=== PATIENT | male | born 1965 | race Caucasian/White ===

== ENCOUNTER 2016-12-31 23:23 | Emergency (ER) | payer OTHER ==
[2016-12-31 23:31] VITALS: O2SAT 99
[2016-12-31] MEDS ORDERED: Phenergan 25 MG INJ IM ONE (23:57)
[2016-12-31] MEDS ORDERED: Hydromorphone 1 mg/ml Ampule IM ONE (23:57)
--- NOTE | 2017-01-01 00:13 | ERPHSYRPT ---
- History of Present Illness Time Seen by Provider: 12/31/16 23:38 Source: patient Exam Limitations: no limitations Patient Subjective Stated Complaint: reports that he slipped on some wet grass, walking downhill at about 1600 tonight - states that he has pain in his right hip and knee and lower back - denies hitting head/LOC Triage Nursing Assessment: ambulatory to treatment area - waddling gait to cart - moves all extremities with equal strength et much rigidity. alert/oriented - unplesant affect. skin flushed/dry - no rash/injury. resps easy - non-labored - shallow per pain Physician History: ABOUT 7.5 HOURS AGO AT HOME PT SLIPPED ON WET GRASS AND FELL WITH RESULTANT PAIN IN THE RIGHT LOWER BACK, RIGHT THIGH AND RIGHT KNEE; DENIES NUMBNESS OF THE RIGHT FOOT BUT ADMITS TO CHRONIC NUMBNESS OF THE RIGHT ANTERIOR THIGH FOR ONE YEAR. PT ALSO C/O RIGHT HIP PAIN FOR THE PAST 3 YEARS. PT DENIES CHEST PAIN , ABDOMINAL PAIN, HEADACHE, NECK PAIN. Allergies/Adverse Reactions: cyclobenzaprine HCl [From GOintegroeril] Allergy (Mild, Verified 12/31/16 23:38) FEET FEEL LIKE ON FIRE Home Medications: Ibuprofen 600 mg PO TID 11/27/16 [History] Levothyroxine Sodium 50 Mcg [Synthroid 50 Mcg] 50 mcg PO DAILY 11/27/16 [ History] Oxycodone HCl 10 mg PO Q6-8HPRN PRN 11/27/16 [History] Hx Tetanus, Diphtheria Vaccination/Date Given: Yes Hx Influenza Vaccination/Date Given: No Hx Pneumococcal Vaccination/Date Given: No Immunizations Up to Date: Yes - Review of Systems Cardiac: No Chest Pain Abdominal/Gastrointestinal: No Abdominal Pain Musculoskeletal: Back Pain, Joint Pain (RIGHT HIP, THIGH AND KNEE PAIN.), No Neck Pain Neurological: Sensory Changes (NUMBNESS OF THE ANTERIOR ASPECT OF THE RIGHT THIGH FOR THE PAST YEAR.), No Headache All Other Systems: Reviewed and Negative - Past Medical History Pertinent Past Medical History: Yes Neurological History: No Pertinent History ENT History: No Pertinent History Cardiac History: No Pertinent History Respiratory History: COPD Endocrine Medical History: No Pertinent History Musculoskeletal History: Other GI Medical History: No Pertinent History History: No Pertinent History Psycho-Social History: No Pertinent History Male Reproductive Disorders: No Pertinent History Other Medical History: BACK AND NECK PROBLEMS - Past Surgical History Past Surgical History: Yes Neuro Surgical History: No Pertinent History Cardiac: No Pertinent History Respiratory: No Pertinent History Gastrointestinal: Bowel Surgery Genitourinary: No Pertinent History Musculoskeletal: Orthopedic Surgery Male Surgical History: No Pertinent History Other Surgical History: SMALL BOWEL RECTION IN 2000 NO ISSUES SINCE; TENDON REPAIR TO LEFT HAND AND RIGHT KNEE SCOPE; PLATE TO NECK C5C6 - Social History Smoking Status: Current every day smoker How long have you smoked: 20 YRS Exposure to second hand smoke: No Drug Use: none Patient Lives Alone: No - Nursing Vital Signs Nursing Vital Signs: Initial Vital Signs Temperature 97.9 F Temperature Source Oral Pulse Rate 98 Respiratory Rate 16 Blood Pressure [Right Arm] 159/89 Pain Intensity 9 - Janett Coma Score Best Eye Response (Viola): (4) open spontaneously Best Verbal Response (Viola): (5) oriented Best Motor Response (Janett): (6) obeys commands Janett Total: 15 - Physical Exam General Appearance: alert Head Injury: no evidence of injury Eye Exam: PERRL/EOMI, eyes nml inspection ENT Exam: airway nml, nml ext.inspection, hearing grossly normal Neck Exam: trachea midline, normal inspection, No tenderness Respiratory/Chest Exam: normal breath sounds Cardiovascular Exam: normal heart sounds Gastrointestinal Exam: soft, normal bowel sounds Back Exam: normal range of motion, decreased range of motion, other (MILD RIGHT LOWER LUMBAR TENDERNESS) Extremity Exam: tenderness (MILD TENDERNESS OF THE MID MEDIAL ASPECT OF THE RIGHT THIGH; MILD TENDERNESS OF THE RIGHT KNEE. ) Peripheral Pulses: dorsalis-pedis (R): 2+, dorsalis-pedis (L): 2+ Neurologic Exam: alert, cooperative Skin Exam: warm, dry SpO2 Interpretation: normal SpO2: 99 Oxygen Delivery: Room Air - Course Nursing assessment & vital signs reviewed: Yes - Radiology Exams Right Femur X-ray Interpretation: Interpreted by me, No Fracture Right Knee X-ray Interpretation: Interpreted by me, No Fracture - CT Exams Lumbar Spine CT Interpretation: Tele-radiologist Report (NEGATIVE FOR FRACTURE OR DISLOCATION.) Ordered Tests: Active Orders 24 hr Category Date Time Status FEMUR Stat Exams 12/31/16 23:58 Taken KNEE (3 VIEWS) Stat Exams 12/31/16 23:58 Taken LUMBAR SPINE W/O [CT] Stat Exams 12/31/16 23:58 Taken Medication Summary Discontinued Medications Generic Name Dose Route Start Last Admin Trade Name Jordy PRN Reason Stop Dose Admin Hydromorphone HCl 2 mg 12/31/16 23:57 01/01/17 01:15 Hydromorphone 1 Mg/Ml Ampule IM 12/31/16 23:58 2 mg STAT ONE Administration Hydromorphone HCl Confirm 01/01/17 01:06 Hydromorphone 1 Mg/Ml Ampule Administered 01/01/17 01:07 Dose 2 mg .ROUTE .STK-MED ONE Promethazine HCl 25 mg 12/31/16 23:57 01/01/17 01:15 Phenergan 25 Mg Inj IM 12/31/16 23:58 25 mg STAT ONE Administration Promethazine HCl Confirm 01/01/17 01:06 Phenergan 25 Mg Inj Administered 01/01/17 01:07 Dose 25 mg .ROUTE .STK-MED ONE - Departure Time of Disposition: 01:35 Departure Disposition: Home Clinical Impression: LUMBAR SPRAIN, RIGHT KNEE SPRAIN, RIGHT THIGH STRAIN Condition: Fair Critical Care Time: No Instructions: Low Back Pain, Knee Sprain Additional Instructions: FOLLOW UP WITH PRIVATE DOCTOR TOMORROW. USE CRUTCHES FOR 2 WEEKS. NO WEIGHT BEARING ON RIGHT FOOT FOR 4 DAYS. BEVERLEY WRAP TO RIGHT KNEE FOR 4 DAYS. ELEVATE RIGHT KNEE ABOVE HEART LEVEL FOR 24 HOURS.
[2017-01-01] MEDS ORDERED: Hydromorphone 1 mg/ml Ampule ONE (01:06)
[2017-01-01] MEDS ORDERED: Phenergan 25 MG INJ ONE (01:06)
[2017-01-01 01:53] VITALS: BP 162/98; PULSE 70
--- NOTE | 2017-01-01 09:52 | XRAY ---
Indication: Pain following fall. Comparison: October 15, 2010. 3 views of the right knee remains intact again with posterior fabella. No new/acute findings.
--- NOTE | 2017-01-01 09:52 | XRAY ---
Indication: Pain following fall. Comparison: None 2 views of the right femur intact with faint vascular calcifications. No other bony, articular, or soft tissue abnormalities.
--- NOTE | 2017-01-01 09:57 | XRAY ---
Indication: Low back pain radiating down right leg following fall. Multiple contiguous axial images obtained through the lumbar spine. Sagittal and coronal reformatted images obtained. Comparison: None. There is a lumbar radiograph April 29, 2016. Axial images are negative for acute fracture, suspicious bony lesions, or spinal canal stenosis. There is mild broad-based disc bulge at the L4-S1 levels with subsequent bilateral foraminal stenosis. Mild bilateral L5-S1 degenerative facet hypertrophy. Sagittal and coronal reformatted images demonstrates normal alignment with disc spaces maintained. No acute compression fracture or subluxation. Visualized noncontrasted soft tissues demonstrates mild aortoiliac calcifications. Impression: 1. Negative for acute fracture/subluxation. 2. Incidental L4-S1 degenerative disc disease better evaluated with MRI if clinically warranted. Comment: Preliminary interpretation was made by [facility]. No critical discrepancy. CTDI 76.98
== END 2017-01-01 01:53 | disposition home or self-care (01) ==
LOC: ED 23:23
DX: S33.5XXA Sprain of ligaments of lumbar spine, initial encounter (principal); S83.91XA Sprain of unspecified site of right knee, initial encounter; S76.911A Strain of unspecified muscles, fascia and tendons at thigh level, right thigh, initial encounter; W01.0XXA Fall on same level from slipping, tripping and stumbling without subsequent striking against object, initial encounter
CPT/HCPCS: 72131; 73552; 73562; 96372; 99284; J1170; J2550

== ENCOUNTER 2018-10-10 09:36 | Day surgery (SDC) | payer OTHER ==
--- NOTE | 2018-10-10 08:14 | HP ---
DATE OF SURGERY: 10/10/2018 HISTORY OF PRESENT ILLNESS: The patient is a 52 year-old who has a cyst on his tailbone and some drainage over the past two to three months treated with antibiotics. He had multiple pits. He had an issue with pilonidal cyst disease. I feel he would benefit from excision. He was shown the risk sheet and explained the procedure in detail but not limited to. PAST MEDICAL HISTORY: Chronic obstructive pulmonary disease. Orthopedic issues in the past. Hip pain. Back pain. Hyperlipidemia. Hypothyroidism. Anxiety/depression disorder in the past. PAST SURGICAL HISTORY: Spinal fusion. Hernia surgery. Right shoulder surgery. Left hand surgery. Right knee surgery. Small bowel resection that he had listed. MEDICATIONS: Suboxone, clonidine, gabapentin, Adderall. ALLERGIES: FLEXERIL. FAMILY HISTORY: Gout, hypertension. SOCIAL HISTORY: One pack per day smoker. He denies alcohol abuse. REVIEW OF SYSTEMS: Twelve systems reviewed pertinent for as noted above, negative or noncontributory as above and per preadmission questionnaire. PHYSICAL EXAMINATION: GENERAL: No acute distress. HEENT: Sclerae nonicteric. NECK: No JVD. CHEST: Equal excursion, nonlabored breathing. CVS: Regular rate and rhythm. ABDOMEN: Soft. No peritoneal signs. EXTREMITIES: No significant edema. NEURO: Alert, oriented, moving extremities symmetrically. No gross motor deficits noted. IMPRESSION: In the pilonidal area he has got some pits. He has got some infection and drainage, question of recurrent pilonidal cyst/abscess disease. I feel the patient will benefit from excisional biopsy pilonidal cyst site possible drainage. He also understands it could be variation of some sort of perirectal abscess that he would benefit from excision possible drainage. Risks and benefits explained in detail but not limited to bleeding or infection, likely need some packing afterwards possibility that he could develop at perirectal area a perirectal infection of glands, could develop fistula ano that could require other procedures or even referral for further intervention, general risk of anesthesia, deep venous thrombosis, pulmonary embolism or pneumonia. Possibility that this is a pilonidal cyst disease with up to 20% risk of recurrence, also need for packing and healing by secondary intent that could take 8 to 12 weeks or longer, possibility of failure to heal possibly requiring referral for other procedure or other specialists. He understands and agrees to the planned procedure, will proceed with excisional biopsy of pilonidal cyst disease, possible packing, possible flap, possible drainage of perirectal abscess if indicated but not limited to. He understands all the above but not limited to, will proceed with outpatient procedure under general anesthesia.
[~2018-10-10 09:36] MED LIST: Lactated Ringers 1,000 ML IV ONE
[2018-10-10] MEDS ORDERED: DIPRIVAN 200 MG/20 ML IV ONE (09:37)
[2018-10-10] MEDS ORDERED: BRIDION 200MG/2ML IV ONE (09:37)
[2018-10-10] MEDS ORDERED: Zemuron 100 MG/10 ML IV ONE (09:37)
[2018-10-10] MEDS ORDERED: SUBLIMAZE 250 MCG/5 ML IV ONE (09:37)
[2018-10-10] MEDS ORDERED: Versed 2 MG/2 ML Injection IV ONE (09:37)
[2018-10-10] MEDS ORDERED: Zofran 4 MG/2 ML VIAL IV ONE (09:37)
[2018-10-10] MEDS ORDERED: Lactated Ringers 1,000 ML IV SCH (10:30)
[2018-10-10] MEDS ORDERED: CLINDAMYCIN-D5W 900 MG/50 ML*** 900 MG/50 ML BAG IV SCH (11:30)
[2018-10-10] MEDS ORDERED: MORPHINE SULFATE 4 MG INJ ONE (13:44)
[2018-10-10] MEDS ORDERED: MORPHINE SULFATE 4 MG INJ IV PRN (13:55)
[2018-10-10 14:40] VITALS: BP 105/61; PULSE 84; O2SAT 93
--- NOTE | 2018-10-10 15:40 | OP ---
SURGERY DATE/TIME: 10/10/2018 1207 PREOPERATIVE DIAGNOSIS: Infected pilonidal cyst site versus perirectal fistula ano. POSTOPERATIVE DIAGNOSIS: Infected pilonidal cyst site versus perirectal fistula ano. PROCEDURE: Excisional biopsy infected pilonidal cyst and/or perirectal abscess cavity approximately 4 x 3 x 3 cm with culture, irrigation and packing. SURGEON: Dr. Bossman Thapa. ANESTHESIA: General. ESTIMATED BLOOD LOSS: Minimal. INDICATIONS: As noted above. Risks and benefits explained in detail and not limited to and consent obtained. DESCRIPTION OF PROCEDURE AND FINDINGS: The patient is taken to the operating room. General anesthesia induced. Placed in prone position. Appropriate padding and positioning per anesthesia and OR staff. He is prepped and draped in usual sterile fashion. After official time out and no disagreement with planned procedure, sharp dissection around the indurated open cavity accomplished dissecting down around the granulation cavity that had some long hairs growing in it. This cavity tracked back more towards the perirectal area but in dissecting it did appear to have an epithelial lining. This is carefully mobilized upwards but again did have long hairs in this consistent more with pilonidal. With the direction it was traveling with the probe there is the possibility it could be a variation of a far reaching fistula ano than abscess cavity. Therefore some hydrogen peroxide was injected down this tract. There was no visible peroxide coming out the anal area at this time. Again what appeared to be some sort of epithelial cyst material had all been visibly removed and the specimen passed off. Copious amount of irrigation irrigating until clear. Pinpoint cautery with small oozing at the skin level accomplished. Good hemostasis noted. Because of the degree of infection it was felt it was not safe to close this wound therefore it was packed with some normal saline wet to dry. There were no immediate complications. I will discuss the findings with the family out in the waiting area. The patient will remove and repack normal saline wet to dry on a daily basis. The patient understood this would take some time, several weeks to heal by secondary intent. There is a possibility that if this appeared to be more fistula ano may not heal, may need other interventions or even referral to tertiary center. He was transferred to recovery in stable condition.
== END 2018-10-10 14:25 | disposition home or self-care (01) ==
LOC: SDC 09:36
PROVIDERS: ATTEND Surgery
DX: L05.01 Pilonidal cyst with abscess (principal)
CPT/HCPCS: 88304; J2250; J2270; J2405; J2704; J3010

== ENCOUNTER 2022-03-09 18:33 | Emergency (ER) | payer SELFPAY ==
--- NOTE | 2022-03-09 18:35 | ERPHSYRPT ---
- History of Present Illness Time Seen by Provider: 03/09/22 18:35 Historian: patient, family Exam Limitations: no limitations Physician History: This a 56-year-old white male who has no diagnosed history of coronary artery disease or myocardial infarction and presents with relatively sudden onset of right upper extremity numbness followed by right anterior chest pressure. Patient states that ever since this came on he just has not felt right. He is not short of breath. He has no abdominal pain although he did have a recent abdominal surgery (December 2021). He has not had a fever. He has had no nausea vomiting or diarrhea. Timing/Duration: today Activities at Onset: other (Patient was driving) Quality: pressure (Right anterior chest) Chest Pain Radiation: arm (Right upper extremity numbness) Severity of Pain-Max: mild Severity of Pain-Current: mild Modifying Factors: Improves With: nothing Associated Symptoms: denies symptoms Prior Chest Pain/Cardiac Workup: no prior chest pain, no prior cardiac workup Nitro Today/Relief: no nitro taken today Aspirin Treatment Today: 81 mg x 4, provided by ED Allergies/Adverse Reactions: cyclobenzaprine HCl [From Flexeril] Allergy (Mild, Verified 10/10/18 10:16) FEET FEEL LIKE ON FIRE Home Medications: Albuterol Sulfate [Proventil Hfa] 6.7 gm IH Q4HPRN PRN 09/19/18 [History] Ergocalciferol (Vitamin D2) [Vitamin D] 50,000 unit PO WEEKLY 09/19/18 [History] cloNIDine HCL [Clonidine HCl] 0.2 mg PO DAILY 03/09/22 [History] Hx Tetanus, Diphtheria Vaccination/Date Given: Yes Hx Influenza Vaccination/Date Given: No Hx Pneumococcal Vaccination/Date Given: No Travel Risk - International Travel Have you traveled outside of the country in past 3 weeks: No - Coronavirus Screening Are you exhibiting any of the following symptoms?: No Close contact with a COVID-19 positive Pt in past 14-21 Days: No - Review of Systems Constitutional: No Symptoms Eyes: No Symptoms Ears, Nose, & Throat: No Symptoms, Throat Swelling Cardiac: Chest Pain (Described as right anterior chest pressure) Abdominal/Gastrointestinal: No Symptoms Genitourinary Symptoms: No Symptoms Musculoskeletal: Other (Right upper extremity numbness) Skin: No Symptoms Neurological: Parasthesia (Right upper extremity) Psychological: No Symptoms Endocrine: No Symptoms Hematologic/Lymphatic: No Symptoms Immunological/Allergic: No Symptoms All Other Systems: Reviewed and Negative - Past Medical History Pertinent Past Medical History: Yes Neurological History: Other ENT History: No Pertinent History Cardiac History: No Pertinent History Respiratory History: COPD Endocrine Medical History: Hypothyroidism Musculoskeletal History: Degenerative Disk Disease, Osteoarthritis GI Medical History: No Pertinent History History: No Pertinent History Psycho-Social History: No Pertinent History Male Reproductive Disorders: No Pertinent History Other Medical History: c-spine surgery due to disc. Daily ARREOLA, - Past Surgical History Past Surgical History: Yes Neuro Surgical History: No Pertinent History Cardiac: No Pertinent History Respiratory: No Pertinent History Gastrointestinal: Bowel Surgery, Hernia Repair Genitourinary: No Pertinent History Musculoskeletal: Orthopedic Surgery Male Surgical History: No Pertinent History Other Surgical History: SMALL BOWEL RECTION IN 2000 NO ISSUES SINCE; TENDON REPAIR TO LEFT HAND AND RIGHT KNEE SCOPE; PLATE TO NECK C5C6, right shoulder surgery - Social History Smoking Status: Current every day smoker How long have you smoked: 35 years Exposure to second hand smoke: Yes Drug Use: none Patient Lives Alone: No - Nursing Vital Signs Nursing Vital Signs: Initial Vital Signs Temperature 97.9 F 03/09/22 18:39 Pulse Rate 92 H 03/09/22 18:39 Respiratory Rate 20 03/09/22 18:39 Blood Pressure 169/86 03/09/22 18:39 O2 Sat by Pulse Oximetry 97 03/09/22 18:39 Pain Scale Pain Intensity 0 - Physical Exam General Appearance: no apparent distress, alert, anxiety Eye Exam: PERRL/EOMI, eyes nml inspection Ears, Nose, Throat Exam: normal ENT inspection, moist mucous membranes Neck Exam: normal inspection, non-tender, supple, full range of motion Respiratory Exam: normal breath sounds, lungs clear, airway intact, No chest tenderness, No respiratory distress Cardiovascular Exam: regular rate/rhythm, normal heart sounds, normal peripheral pulses Gastrointestinal/Abdomen Exam: soft, normal bowel sounds, No tenderness Rectal Exam: not done Back Exam: normal inspection, normal range of motion, No CVA tenderness Extremity Exam: normal inspection, normal range of motion, pelvis stable Neurologic Exam: alert, oriented x 3, cooperative, jewel hole rough opener II-XII nml as tested, normal mood/affect, nml cerebellar function, nml station & gait, sensation nml Skin Exam: normal color, warm, dry Lymphatic Exam: No adenopathy SpO2 Interpretation: normal O2 Delivery: Room Air - Course Nursing assessment & vital signs reviewed: Yes EKG Interpreted by Me: RATE (95), Sinus Rhythm, NORMAL AXIS, NORMAL INTERVALS, NORMAL QRS, NORMAL ST-T, Other (When compared to EKG dated 08/04/2019 there is no significant difference present. There is no acute ischemic changes on today's EKG.) Ordered Tests: Active Orders 24 hr Category Date Time Status Donation Specialist STAT Care 03/09/22 18:40 Active EKG-ER Only STAT Care 03/09/22 18:40 Active IV Insertion STAT Care 03/09/22 18:40 Active Pulse Oximetry (ED) STAT Care 03/09/22 18:40 Active CHEST 1 VIEW (PORTABLE) Stat Exams 03/09/22 18:40 Taken HEAD WITHOUT CONTRAST [CT] Stat Exams 03/09/22 19:15 Taken CBC W DIFF Stat Lab 03/09/22 21:00 Completed CMP Stat Lab 03/09/22 21:00 Completed D-DIMER QUANTITATIVE Stat Lab 03/09/22 21:00 Completed PROTIME WITH INR Stat Lab 03/09/22 21:00 Completed TROPONIN Q3H Lab 03/09/22 21:00 Completed TROPONIN Q3H Lab 03/10/22 00:45 Ordered TROPONIN Q3H Lab 03/10/22 03:45 Ordered TROPONIN Q3H Lab 03/10/22 06:45 Ordered Medication Summary Discontinued Medications Generic Name Dose Route Start Last Admin Trade Name Freq PRN Reason Stop Dose Admin Aspirin 324 mg 03/09/22 18:40 03/09/22 20:43 Aspirin 81 Mg Tab.Chew PO 03/09/22 18:41 324 mg STAT ONE Administration Clonidine 0.2 mg 03/09/22 21:50 03/09/22 21:58 Clonidine Hcl 0.1 Mg Tablet PO 03/09/22 21:51 0.2 mg STAT ONE Administration Clonidine Confirm 03/09/22 21:57 Clonidine Hcl 0.1 Mg Tablet Administered 03/09/22 21:58 Dose 0.2 mg .ROUTE .STK-MED ONE Lab/Rad Data: Laboratory Result Diagrams 03/09/22 21:00 03/09/22 21:00 Laboratory Results 03/09/22 03/09/22 03/09/22 Range/Units 21:00 21:00 21:00 WBC (4.0-10.5) x10^3/uL RBC (4.1-5.6) x10^6/uL Hgb (12.5-18.0) g/dL Hct (42-50) % MCV (78-100) fL MCH (26-32) pg MCHC (32-36) g/dL RDW (11.5-14.0) % Plt Count (150-450) x10^3/uL MPV (7.5-11.0) fL Gran % (36.0-66.0) % Immature Gran % (Auto) (0.00-0.4) % Nucleat RBC Rel Count (0.00-0.1) % Eos # (Auto) (0-0.5) x10^3/uL Immature Gran # (Auto) (0.00-0.03) x10^3u/L Absolute Lymphs (auto) (1.0-4.6) x10^3/uL Absolute Monos (auto) (0.0-1.3) x10^3/uL Absolute Nucleated RBC (0.00-0.01) x10^3u/L Lymphocytes % (24.0-44.0) % Monocytes % (0.0-12.0) % Eosinophils % (0.00-5.0) % Basophils % (0.0-0.4) % Absolute Granulocytes (1.4-6.9) x10^3/uL Basophils # (0-0.4) x10^3/uL PT 11.3 (9.4-12.5) SECONDS INR 1.07 (0.8-3.0) D-Dimer 0.82 H* (0.0-0.50) mg/L Sodium 133 L (137-145) mmol/L Potassium 4.4 (3.5-5.1) mmol/L Chloride 102 (98-107) mmol/L Carbon Dioxide 23 (22-30) mmol/L Anion Gap 12.1 (5-15) MEQ/L BUN 10 (9-20) mg/dL Creatinine 0.85 (0.66-1.25) mg/dL Estimated GFR > 60.0 ML/MIN Glucose 101 (74-106) mg/dL Calcium 9.3 (8.4-10.2) mg/dL Total Bilirubin 0.80 (0.2-1.3) mg/dL AST 22 (17-59) U/L ALT 13 (0-50) U/L Alkaline Phosphatase 129 H (38-126) U/L Troponin I < 0.012 (0.000-0.034) ng/mL Serum Total Protein 7.9 (6.3-8.2) g/dL Albumin 4.0 (3.5-5.0) g/dL 03/09/22 Range/Units 21:00 WBC 9.0 (4.0-10.5) x10^3/uL RBC 4.23 (4.1-5.6) x10^6/uL Hgb 14.0 (12.5-18.0) g/dL Hct 42.6 (42-50) % MCV 100.7 H (78-100) fL MCH 33.1 H (26-32) pg MCHC 32.9 (32-36) g/dL RDW 13.7 (11.5-14.0) % Plt Count 299 (150-450) x10^3/uL MPV 10.5 (7.5-11.0) fL Gran % 67.5 H (36.0-66.0) % Immature Gran % (Auto) 0.3 (0.00-0.4) % Nucleat RBC Rel Count 0.0 (0.00-0.1) % Eos # (Auto) 0.08 (0-0.5) x10^3/uL Immature Gran # (Auto) 0.03 (0.00-0.03) x10^3u/L Absolute Lymphs (auto) 2.13 (1.0-4.6) x10^3/uL Absolute Monos (auto) 0.63 (0.0-1.3) x10^3/uL Absolute Nucleated RBC 0.00 (0.00-0.01) x10^3u/L Lymphocytes % 23.6 L (24.0-44.0) % Monocytes % 7.0 (0.0-12.0) % Eosinophils % 0.9 (0.00-5.0) % Basophils % 0.7 (0.0-0.4) % Absolute Granulocytes 6.08 (1.4-6.9) x10^3/uL Basophils # 0.06 (0-0.4) x10^3/uL PT (9.4-12.5) SECONDS INR (0.8-3.0) D-Dimer (0.0-0.50) mg/L Sodium (137-145) mmol/L Potassium (3.5-5.1) mmol/L Chloride (98-107) mmol/L Carbon Dioxide (22-30) mmol/L Anion Gap (5-15) MEQ/L BUN (9-20) mg/dL Creatinine (0.66-1.25) mg/dL Estimated GFR ML/MIN Glucose (74-106) mg/dL Calcium (8.4-10.2) mg/dL Total Bilirubin (0.2-1.3) mg/dL AST (17-59) U/L ALT (0-50) U/L Alkaline Phosphatase (38-126) U/L Troponin I (0.000-0.034) ng/mL Serum Total Protein (6.3-8.2) g/dL Albumin (3.5-5.0) g/dL - Progress Progress: improved, re-examined Air Movement: good Progress Note: 03/09/22 19:15 Chest x-ray shows no acute cardiopulmonary process. 03/09/22 23:24 Medical decision making: This patient has chest pain which has now resolved. He is also stating that the numbness is right upper extremity is also resolved. He is not short of breath. His initial troponin was normal. He did have a slightly elevated D-dimer as well. Patient refuses the repeat 3-hour troponin and a CTA of the chest. He states he needs to go home because he has a special needs family member to take care of. He will follow-up with his primary care physician as an outpatient basis. Blood Culture(s) Obtained: No Antibiotics given: No Counseled pt/family regarding: lab results, diagnosis, need for follow-up, rad results - Departure Departure Disposition: Home Clinical Impression: Chest pain, Hypertension Condition: Stable Critical Care Time: No Referrals: FLORECITA GEE NP [Primary Care Provider] - Follow up/PCP as directed
[2022-03-09] MEDS ORDERED: BABY ASPIRIN 81 MG CHEW PO ONE (18:40)
[2022-03-09 21:05] LABS: Absolute Neutrophil Ct (ANC) 6.08 x10^3/uL (1.4-6.9); Basophil (Absolute #) 0.06 x10^3/uL (0-0.4); Eosinophil % 0.9 % (0.00-5.0); Eosinophil (Absolute #) 0.08 x10^3/uL (0-0.5); Hematocrit 42.6 % (42-50); Lymphocyte (Absolute #) 2.13 x10^3/uL (1.0-4.6); Lymphocytes % 23.6 % (24.0-44.0); Mean Cell Volume 100.7 fL (78-100); Mean Corpuscular Hemoglobin 33.1 pg (26-32); Mean Corpuscular Hgb Concent. 32.9 g/dL (32-36); Mean Platelet Volume 10.5 fL (7.5-11.0); Monocyte (Absolute #) 0.63 x10^3/uL (0.0-1.3); Neutrophil % 67.5 % (36.0-66.0); Platelet Count 299 x10^3/uL (150-450); Red Blood Count 4.23 x10^6/uL (4.1-5.6); Red Cell Distribution Width 13.7 % (11.5-14.0)
[2022-03-09 21:22] LABS: ALKALINE PHOSPHATASE 129 U/L (38-126); ANION GAP 12.1 MEQ/L (5-15); BLOOD UREA NITROGEN 10 mg/dL (9-20); CHLORIDE 102 mmol/L (98-107); Calcium 9.3 mg/dL (8.4-10.2); Carbon Dioxide 23 mmol/L (22-30); Creatinine 1 0.85 mg/dL (0.66-1.25); EST GLOMERULAR FILTRATION RATE > 60.0 ML/MIN; Glucose 101 mg/dL (74-106); Potassium 4.4 mmol/L (3.5-5.1); SGOT/AST 22 U/L (17-59); SGPT/ALT 13 U/L (0-50); SODIUM 133 mmol/L (137-145); Total Protein 7.9 g/dL (6.3-8.2)
[2022-03-09] MEDS ORDERED: CLONIDINE 0.1 MG TABLET PO ONE (21:50)
[2022-03-09] MEDS ORDERED: CLONIDINE 0.1 MG TABLET ONE (21:57)
[2022-03-09 22:28] LABS: INR 1.07 (0.8-3.0); PROTIME 11.3 SECONDS (9.4-12.5)
[2022-03-09 22:32] LABS: D-DIMER QUANTITATIVE 0.82 mg/L (0.0-0.50)
[2022-03-10 00:02] VITALS: BP 146/82; PULSE 74; O2SAT 97
--- NOTE | 2022-03-10 09:03 | XRAY ---
Indication: Right chest heaviness. Right arm numbness. Comparison: None Portable chest hyperinflated with minimal bibasilar fibrosis/scarring. Remaining heart and lungs unremarkable. Bony thorax intact with mild osteopenia, degenerative changes, distal right clavicle resection, and partially visualized lower cervical fusion hardware. Impression: Nonacute hyperinflated chest with chronic features.
--- NOTE | 2022-03-10 09:03 | XRAY ---
Indication: Headache and right upper extremity numbness. Multiple contiguous axial images obtained through the head without contrast. Comparison: None Left posterior parietal lobe demonstrates small focus of encephalomalacia from old infarct. No acute intracranial hemorrhage, abnormal extra-axial fluid collection, or mass effect. Fourth ventricle is midline without hydrocephalus. Hathaway-white matter differentiation preserved. Bony calvarium intact. Visualized paranasal sinuses and mastoid air cells are clear. Impression: Old left parietal lobe infarct. Remaining CT head without contrast exam is negative.
== END 2022-03-10 | disposition home or self-care (01) ==
LOC: ED 18:33
DX: R07.9 Chest pain, unspecified (principal); I10 Essential (primary) hypertension; R20.2 Paresthesia of skin; J44.9 Chronic obstructive pulmonary disease, unspecified; Z72.0 Tobacco use; Z79.899 Other long term (current) drug therapy
CPT/HCPCS: 36000; 36415; 70450; 71045; 80053; 84484; 85025; 85379; 85610; 93005; 93041; 94760; 99284; A9270-GY

== ENCOUNTER 2023-08-09 08:23 | Emergency (ER) | payer OTHER ==
[2023-08-09 08:35] VITALS: BP 208/94; PULSE 97; TEMP 97.5
[2023-08-09 08:37] VITALS: RESP 18
--- NOTE | 2023-08-09 08:38 | ERPHSYRPT ---
- History of Present Illness Time Seen by Provider: 08/09/23 08:40 Source: patient Exam Limitations: no limitations Physician History: Pt states since 3 days ago he has had an intermittent frontal headache, nausea and vomiting x6 without blood. Last BM was yesterday & wnl. Pt denies chest pain, shortness of air, ankle swelling. Allergies/Adverse Reactions: cyclobenzaprine HCl [From Flexeril] Allergy (Mild, Verified 08/09/23 08:36) FEET FEEL LIKE ON FIRE Home Medications: Albuterol Sulfate [Proventil Hfa] 6.7 gm IH Q4HPRN PRN 09/19/18 [History] Ergocalciferol (Vitamin D2) [Vitamin D] 50,000 unit PO WEEKLY 09/19/18 [History] cloNIDine HCL [Clonidine HCl] 0.2 mg PO DAILY 03/09/22 [History] Hx Tetanus, Diphtheria Vaccination/Date Given: Yes Hx Influenza Vaccination/Date Given: No Hx Pneumococcal Vaccination/Date Given: No Travel Risk - Vaccine Status Have you recieved a Covid-19 vaccination: Yes Electrocardiogram Technician: Moderna - Vaccination Dates Date of 2cond Vaccination (if applicable): 2020 - Review of Systems Respiratory: No Dyspnea Cardiac: No Chest Pain Abdominal/Gastrointestinal: Nausea, Vomiting, No Abdominal Pain Neurological: Headache - Past Medical History Pertinent Past Medical History: Yes Neurological History: Other ENT History: No Pertinent History Cardiac History: No Pertinent History Respiratory History: COPD Endocrine Medical History: Hypothyroidism Musculoskeletal History: Degenerative Disk Disease, Osteoarthritis GI Medical History: No Pertinent History, Hernia History: No Pertinent History Psycho-Social History: No Pertinent History Male Reproductive Disorders: No Pertinent History Other Medical History: c-spine surgery due to disc. Daily ARREOLA, - Past Surgical History Past Surgical History: Yes Neuro Surgical History: No Pertinent History Cardiac: No Pertinent History Respiratory: No Pertinent History Gastrointestinal: Bowel Surgery, Hernia Repair Genitourinary: No Pertinent History Musculoskeletal: Orthopedic Surgery Male Surgical History: No Pertinent History Other Surgical History: SMALL BOWEL RECTION IN 2000 NO ISSUES SINCE; TENDON REPAIR TO LEFT HAND AND RIGHT KNEE SCOPE; PLATE TO NECK C5C6, right shoulder surgery - Social History Smoking Status: Current every day smoker How long have you smoked: 35 years Exposure to second hand smoke: Yes Drug Use: none Patient Lives Alone: No - Nursing Vital Signs Nursing Vital Signs: Initial Vital Signs Temperature 97.5 F 08/09/23 08:34 Pulse Rate 97 H 08/09/23 08:34 Respiratory Rate 16 08/09/23 08:34 Blood Pressure 208/94 08/09/23 08:34 O2 Sat by Pulse Oximetry 98 08/09/23 08:34 Pain Scale Pain Intensity 4 - Physical Exam General Appearance: alert Eye Exam: eyes nml inspection Ears, Nose, Throat Exam: TMs normal, pharyngeal erythema (moderate) Neck Exam: normal inspection Respiratory Exam: lungs clear Cardiovascular Exam: normal heart sounds Gastrointestinal/Abdomen Exam: soft, normal bowel sounds Back Exam: normal inspection Extremity Exam: No pedal edema Neurologic Exam: alert, cooperative SpO2 Interpretation: normal SpO2: 98 O2 Delivery: Room Air Lab/Rad Data: Laboratory Results 08/09/23 Range/Units 08:54 Influenza Type A Ag NEGATIVE (NEGATIVE) Influenza Type B Ag NEGATIVE (NEGATIVE) RSV (PCR) NEGATIVE (NEGATIVE) SARS-CoV-2 (PCR) POSITIVE A (NEGATIVE) Group A Strep Antibody NOT DETECTED (NEGATIVE) - Progress Progress: unchanged Counseled pt/family regarding: diagnosis, need for follow-up Medical Desision Making - Diagnostic Testing Diagnostic test were ordered, analyzed, and reviewed by me: Yes - Departure Departure Disposition: Home Clinical Impression: COVID-19, Vomiting Condition: Stable Critical Care Time: No Instructions: COVID-19 (DC), Nausea and Vomiting, Adult (DC) Additional Instructions: Follow up with private doctor tomorrow. Self isolate for the next 10 days. Prescriptions: Ondansetron ODT 4 MG [Zofran Odt 4 mg] 4 mg PO Q6H PRN PRN #10 tablet PRN Reason: Nausea
[2023-08-09 08:49] VITALS: O2SAT 98
[2023-08-09 09:34] LABS: Group A Strep NOT DETECTED (NEGATIVE)
[2023-08-09 09:44] LABS: INFLUENZA A NEGATIVE (NEGATIVE); INFLUENZA B NEGATIVE (NEGATIVE); RESPIRATORY SYNCTIAL VIRUS NEGATIVE (NEGATIVE)
[2023-08-09 09:46] LABS: SARS-CoV-2 Xpert Express POSITIVE (NEGATIVE)
== END 2023-08-09 10:10 | disposition home or self-care (01) ==
LOC: ED 08:23
DX: U07.1 COVID-19 (principal); R11.2 Nausea with vomiting, unspecified; R51.9 Headache, unspecified; Z79.899 Other long term (current) drug therapy; Z72.0 Tobacco use
CPT/HCPCS: 0241U; 87651; 99282